=== PATIENT | female | born 1965 | race Caucasian/White ===

== ENCOUNTER 2016-12-13 22:34 | Emergency (ER) | payer OTHER ==
[~2016-12-13] VITALS: Ht 167.6 cm; Wt 90.7 kg
[2016-12-13 22:34] VITALS: BP 149/79
[~2016-12-13 22:34] MED LIST: NO HOME MEDS
[2016-12-14] MEDS ORDERED: PERCOCET 5MG/325MG TAB As Ordered ONE (00:53)
[2016-12-14] MEDS ORDERED: PERCOCET 5MG/325MG TAB PO ONE (01:00)
[2016-12-14] MEDS ORDERED: TOBRADEX OPHTH SUSP 2.5 ML OD ONE (01:30)
== END 2016-12-14 01:44 | disposition home or self-care (01) ==
LOC: M ED 23:34
DX: T15.01XA Foreign body in cornea, right eye, initial encounter (principal); X58.XXXA Exposure to other specified factors, initial encounter; Y92.89 Other specified places as the place of occurrence of the external cause; Y93.89 Activity, other specified; Y99.8 Other external cause status

== ENCOUNTER → 2017-07-23 | Outpatient (REF) | payer OTHER | LOC: M LAB REF 09:45 | DX: J02.9 Acute pharyngitis, unspecified (principal) ==

== ENCOUNTER → 2018-08-18 | Outpatient (REF) | payer OTHER ==
[2018-08-20 14:43] LABS: HPV HYBRID CAPTURE II Negative (Negative)
== END ==
LOC: M SFHCWAGY 08:27
PROVIDERS: ATTEND Nurse Practitioner Women's Health
DX: Z01.419 Encounter for gynecological examination (general) (routine) without abnormal findings (principal); Z12.4 Encounter for screening for malignant neoplasm of cervix; Z11.51 Encounter for screening for human papillomavirus (HPV); N76.0 Acute vaginitis
CPT/HCPCS: 87624; G0123

== ENCOUNTER → 2019-12-07 | Outpatient (CLI) | payer OTHER | LOC: M LABSMTC 11:48 | PROVIDERS: ATTEND Pediatrics | DX: Z03.818 Encounter for observation for suspected exposure to other biological agents ruled out (principal); Z11.59 Encounter for screening for other viral diseases ==

== ENCOUNTER → 2020-04-12 | Outpatient (REF) | payer OTHER | LOC: M SFHCWAGY 18:15 | PROVIDERS: ATTEND Nurse Practitioner Women's Health | DX: Z12.4 Encounter for screening for malignant neoplasm of cervix (principal) ==

== ENCOUNTER → 2022-02-18 | Outpatient (REF) | payer OTHER | LOC: M PLALAB 08:49 | PROVIDERS: ATTEND Nurse Practitioner Family | DX: Z12.4 Encounter for screening for malignant neoplasm of cervix (principal) ==

== ENCOUNTER → 2023-02-19 | Outpatient (REF) | payer OTHER | LOC: M SFHCDERM 17:56 | PROVIDERS: ATTEND Nurse Practitioner Family | DX: Z12.4 Encounter for screening for malignant neoplasm of cervix (principal) | CPT/HCPCS: 87624; G0123 ==

== ENCOUNTER → 2023-11-11 | Outpatient (CLI) | payer OTHER | LOC: M WUC 11:51 | PROVIDERS: ATTEND Internal Medicine | DX: R10.9 Unspecified abdominal pain (principal) ==

== ENCOUNTER → 2024-02-24 | Outpatient (REF) | payer OTHER | LOC: M SFHCWAGY 09:58 | PROVIDERS: ATTEND Nurse Practitioner Family | DX: Z12.4 Encounter for screening for malignant neoplasm of cervix (principal); N95.2 Postmenopausal atrophic vaginitis | CPT/HCPCS: 87624; G0123 ==